=== PATIENT | male | born 1980 | race Two or more races ===

== ENCOUNTER 2019-03-27 12:46 | Inpatient (IN) | payer MEDICAID ==
[~2019-03-27] VITALS: Ht 175.3 cm; Wt 92.1 kg
[2019-03-27] MEDS ORDERED: GABA-531 PO (13:14)
[2019-03-27] MEDS ORDERED: PALI273S IM (13:14)
[2019-03-27] MEDS ORDERED: HYDR-4031 PO (13:14)
[2019-03-27 14:14] LABS: BASOPHILS % (AUTO) 0.9 % (0.0-2.0); HEMATOCRIT 48.2 % (41-53); HEMOGLOBIN 16.6 g/dL (13.5-17.5); LYMPHOCYTES # (AUTO) 2.1 K/uL (1.0-4.8); LYMPHOCYTES % (AUTO) 29.7 % (22.0-44.0); MEAN CORPUSCULAR HEMOGLOBIN 32.1 pg (26.0-34.0); MEAN CORPUSCULAR HGB CONC 34.5 G/dL (31.0-37.0); MEAN CORPUSCULAR VOLUME 93 fL (80-100); MONOCYTES # (AUTO) 0.8 K/uL (0.1-1.0); MONOCYTES % (AUTO) 10.7 % (2.0-9.0); NEUTROPHILS # (AUTO) 4.1 K/uL (1.8-7.7); NEUTROPHILS % (AUTO) 57.7 % (40.0-70.0); PLATELET COUNT (AUTO) 145 K/uL (150-450); RED BLOOD CELL COUNT(AUTO) 5.18 MIL/uL (4.50-5.90); RED CELL DISTRIBUTION WIDTH 12.5 % (11.5-14.5)
[2019-03-27 14:18] LABS: AMPHET/METH SCREEN,URINE NEGATIVE (NEGATIVE); BARBITURATE SCREEN, URINE NEGATIVE (NEGATIVE); BENZODIAZEPINES SCREEN,URINE NEGATIVE (NEGATIVE); CANNABINOID SCREEN,URINE NEGATIVE (NEGATIVE); COCAINE SCREEN,URINE NEGATIVE (NEGATIVE); METHADONE SCREEN, URINE NEGATIVE (NEGATIVE); OPIATE SCREEN,URINE NEGATIVE (NEGATIVE); PHENCYCLIDINE SCREEN,URINE NEGATIVE (NEGATIVE)
[2019-03-27 14:37] LABS: ANION GAP 10 mmol/L (8-16); CARBON DIOXIDE 27 mmol/L (22-29); CHLORIDE 103 mmol/L (98-107); CREATININE 1.04 mg/dL (0.60-1.30); GLUCOSE,RANDOM 81 mg/dL (70-110); POTASSIUM 4.1 mmol/L (3.5-5.1); SODIUM SERUM 140 mmol/L (136-145); UREA NITROGEN, BLOOD 13 mg/dL (7-18)
[2019-03-27 14:38] LABS: CALCIUM, TOTAL 8.9 mg/dL (8.8-10.5); GLOMERULAR FILTR. RATE CALC > 60 mL/min (>60)
[2019-03-27 14:44] LABS: ALANINE AMINOTRANSFERASE 91 U/L (12-78); ALKALINE PHOSPHATASE 51 U/L (46-116); ASPARTATE AMINOTRANSFERASE 50 U/L (15-37); BILIRUBIN,TOTAL 1.6 mg/dL (0.1-1.0); TOTAL PROTEIN, SERUM 7.5 g/dL (6.4-8.2)
[2019-03-27] MEDS ORDERED: NICOTINE 14 MG/24 HOUR PATCH TD ONE (15:00)
[2019-03-27] MEDS ORDERED: ZOLPIDEM TARTRATE 10 MG TABLET PO PRN (15:15)
[2019-03-27] MEDS ORDERED: HALOPERIDOL 5 MG TABLET PO PRN (15:15)
[2019-03-27] MEDS ORDERED: LORazepam 2 MG TABLET PO ONE (16:00)
[2019-03-27] MEDS ORDERED: GABAPENTIN 100 MG CAPSULE PO ONE (16:00)
[2019-03-27] MEDS ORDERED: INFLUENZA VIRUS VACCINE QVS 2019-20 (3YR+)/PF 60 MCG/0.5 ML SYRINGE IM ONE (18:45)
[2019-03-27] MEDS ORDERED: PNEUMOCOCCAL VACCINE POLYVALENT 0.5 ML VIAL [PPSV23] IM ONE (18:45)
[2019-03-27 18:49] VITALS: BP 123/70
[2019-03-28 06:14] VITALS: BP 110/63
[2019-03-28 08:19] VITALS: BP 112/60
[2019-03-28 09:15] LABS: CHOL/HDL RATIO 5.9 (4.2-7.3)
[2019-03-28] MEDS: NICOTINE 21 MG/24 HOUR PATCH TD SCH (09:40)
[2019-03-28] MEDS ORDERED: PALIPERIDONE PALMITATE 234 MG/1.5 ML SYRINGE IM ONE (10:15)
[2019-03-28] MEDS: SERTRALINE HCL 50 MG TABLET PO SCH (12:37)
[2019-03-28] MEDS: GABAPENTIN 300 MG CAPSULE PO SCH ×2 (12:46→16:53)
[2019-03-28 16:00] VITALS: BP 126/77
[2019-03-28] MEDS: LORazepam 2 MG TABLET PO PRN (18:39)
[2019-03-28] MEDS: TraZODone HCL 100 MG TABLET PO SCH (20:05)
[2019-03-29 08:21] VITALS: BP 100/64
[2019-03-29] MEDS: SERTRALINE HCL 50 MG TABLET PO SCH (08:24)
[2019-03-29] MEDS: NICOTINE 21 MG/24 HOUR PATCH TD SCH (08:24)
[2019-03-29] MEDS: GABAPENTIN 300 MG CAPSULE PO SCH ×3 (08:24→16:19)
[2019-03-29 16:07] VITALS: BP 111/68
[2019-03-29] MEDS: TraZODone HCL 100 MG TABLET PO SCH (20:34)
[2019-03-30 06:20] VITALS: BP 111/75
[2019-03-30 08:20] VITALS: BP 106/64
[2019-03-30] MEDS: NICOTINE 21 MG/24 HOUR PATCH TD SCH (08:38)
[2019-03-30] MEDS: SERTRALINE HCL 50 MG TABLET PO SCH (08:38)
[2019-03-30] MEDS: GABAPENTIN 300 MG CAPSULE PO SCH ×3 (08:38→16:18)
[2019-03-30 16:07] VITALS: BP 131/74
[2019-03-30] MEDS: TraZODone HCL 100 MG TABLET PO SCH (20:06)
[2019-03-31 00:07] VITALS: BP 122/84
[2019-03-31] MEDS: SERTRALINE HCL 50 MG TABLET PO SCH (08:25)
[2019-03-31] MEDS: NICOTINE 21 MG/24 HOUR PATCH TD SCH (08:25)
[2019-03-31] MEDS: GABAPENTIN 300 MG CAPSULE PO SCH ×3 (08:25→16:15)
[2019-03-31 08:30] VITALS: BP 108/64
[2019-03-31 16:12] VITALS: BP 119/66
[2019-03-31] MEDS: LORazepam 2 MG TABLET PO PRN (16:50)
[2019-03-31] MEDS: TraZODone HCL 100 MG TABLET PO SCH (20:30)
[2019-04-01 05:57] VITALS: BP 116/76
[2019-04-01] MEDS: NICOTINE 21 MG/24 HOUR PATCH TD SCH (08:25)
[2019-04-01] MEDS: SERTRALINE HCL 100 MG TABLET PO SCH (08:25)
[2019-04-01] MEDS: GABAPENTIN 300 MG CAPSULE PO SCH ×3 (08:25→16:43)
[2019-04-01 09:15] VITALS: BP 123/90
[2019-04-01 16:41] VITALS: BP 117/82
[2019-04-01] MEDS: TraZODone HCL 100 MG TABLET PO SCH (20:33)
[2019-04-02 00:38] VITALS: BP 101/61
[2019-04-02 08:23] VITALS: BP 118/75
[2019-04-02] MEDS: NICOTINE 21 MG/24 HOUR PATCH TD SCH (08:42)
[2019-04-02] MEDS: GABAPENTIN 300 MG CAPSULE PO SCH ×2 (08:43→12:09)
[2019-04-02] MEDS: SERTRALINE HCL 100 MG TABLET PO SCH (08:43)
[2019-04-02] MEDS ORDERED: TRAZ-220 PO (11:07)
[2019-04-02] MEDS ORDERED: SERT100T12 PO (11:07)
== END 2019-04-02 13:30 | disposition home or self-care (01) | DRG 753 ==
LOC: EMS 12:47 → B2S 17:08 → B3A 18:47 → B2S 03-30 15:59
PROVIDERS: ADMIT Psychiatry & Neurology Psychiatry; ATTEND Psychiatry & Neurology Psychiatry
DX: F31.4 Bipolar disorder, current episode depressed, severe, without psychotic features (principal); D69.6 Thrombocytopenia, unspecified; R45.851 Suicidal ideations; B19.20 Unspecified viral hepatitis C without hepatic coma; F25.9 Schizoaffective disorder, unspecified; F17.200 Nicotine dependence, unspecified, uncomplicated; F60.3 Borderline personality disorder; F43.10 Post-traumatic stress disorder, unspecified; Z79.899 Other long term (current) drug therapy; Z91.5 Personal history of self-harm; Z90.49 Acquired absence of other specified parts of digestive tract
CPT/HCPCS: 80074; 82105; 83036; 84443; 87081; 90686; 90732; G0480